=== PATIENT | female | born 1950 | race African-American/Black ===

== ENCOUNTER → 2021-04-02 | Day surgery (SDC) | payer MEDICARE, MEDICAID | LOC: CSHMAMMO 07:15 | PROVIDERS: ATTEND Family Medicine Sports Medicine | PROC: 0HBU3ZX Excision of Left Breast, Percutaneous Approach, Diagnostic (ICD-10-PCS; principal; 2021-04-02) | DX: D24.2 Benign neoplasm of left breast (principal) | CPT/HCPCS: 19081; 76098; 88305 ==

== ENCOUNTER 2021-05-01 17:45 | Inpatient (IN) | payer MEDICARE, MEDICAID ==
[2021-05-01 18:15] LABS: #Eosinphils 0.2 10x3/uL (0.0-0.5); #Monocytes 0.4 10x3/uL (0.0-1.1); #Neutrophils 2.2 10x3/uL (1.5-8.4); %Basophils 0.4 % (0.0-2.0); %Eosinophils 3.7 % (0.0-6.0); %Lymphocytes 47.1 % (18.0-47.0); %Monocytes 7.1 % (0.0-10.0); %Neutrophils 41.5 % (40.0-75.0); Hemoglobin 9.8 g/dL (12.0-15.5); Mean Corpuscular HGB CONC 31.5 g/dL (32.0-36.0); Mean Corpuscular Hemoglobin 27.3 pg (27.0-33.0); Mean Corpuscular Volume 86.6 fl (81.6-98.3); Platelet Count 220 10x3/uL (150-450); RBC Distribution Width 15.1 % (11.5-14.5); Red Blood Cell (RBC) Count 3.59 10x6/uL (3.90-5.03); White Blood Cell (WBC) Count 5.4 10x3/uL (3.5-10.5)
[2021-05-01 18:31] LABS: ALT (SGPT) 27 U/L (8-55); AST (SGOT) 24 U/L (5-34); Albumin 3.9 g/dL (3.4-4.8); Alkaline Phosphatase 79 U/L (40-110); Anion Gap 13 mmol/L (10-20); BUN (Urea Nitrogen) 60 mg/dL (9.8-20.1); Bilirubin, Total 0.3 mg/dL (0.2-1.2); Calc. Creatinine Clearance 0 mL/min (70-130); Calcium 11.1 mg/dL (7.8-10.44); Carbon Dioxide 24 mmol/L (23-31); Chloride 105 mmol/L (98-107); Globulin 3.9 g/dL (2.4-3.5); Glucose 126 mg/dL (83-110); Potassium 4.4 mmol/L (3.5-5.1); Protein, Total 7.8 g/dL (5.8-8.1); Sodium 138 mmol/L (136-145)
[2021-05-01] MEDS ORDERED: Enoxaparin Sodium 100 MG/ML SYRINGE ONE (19:45)
[2021-05-01] MEDS ORDERED: Dextrose 50% Abboject 50 ML SYRINGE SLOW IVP PRN (19:59)
[2021-05-01] MEDS ORDERED: Acetaminophen 325 MG TAB PO PRN (19:59)
[2021-05-01] MEDS ORDERED: Acetaminophen 650 MG Suppository PR PRN (19:59)
[2021-05-01] MEDS ORDERED: Ondansetron ODT 4 MG TAB PO PRN (19:59)
[2021-05-01] MEDS ORDERED: Ondansetron PF 4 MG/2 ML Vial IVP PRN (19:59)
[2021-05-01] MEDS ORDERED: HumaLOG 300 UNITS/3 ML VIAL SC PRN ×2 (19:59)
[2021-05-01] MEDS ORDERED: Dextrose 5% in Water 1,000 ML IV PRN (19:59)
[2021-05-01 20:33] VITALS: BMI 34.8
[2021-05-01] MEDS ORDERED: Sodium Chloride 0.9% 1,000 ML IV SCH ×2 (21:15→21:30)
[2021-05-01 21:36] LABS: Troponin I Less than 0.010 ng/mL (< 0.028)
[2021-05-02 00:09] LABS: Troponin I Less than 0.010 ng/mL (< 0.028)
[2021-05-02 04:54] LABS: #Eosinphils 0.2 10x3/uL (0.0-0.5); #Monocytes 0.4 10x3/uL (0.0-1.1); #Neutrophils 1.7 10x3/uL (1.5-8.4); %Basophils 0.4 % (0.0-2.0); %Lymphocytes 47.5 % (18.0-47.0); %Monocytes 8.5 % (0.0-10.0); %Neutrophils 39.2 % (40.0-75.0); Hemoglobin 8.6 g/dL (12.0-15.5); Mean Corpuscular HGB CONC 31.5 g/dL (32.0-36.0); Mean Corpuscular Hemoglobin 27.2 pg (27.0-33.0); Mean Corpuscular Volume 86.4 fl (81.6-98.3); Mean Platelet Volume 10.1 fl (7.4-10.4); Platelet Count 186 10x3/uL (150-450); RBC Distribution Width 15.1 % (11.5-14.5); Red Blood Cell (RBC) Count 3.16 10x6/uL (3.90-5.03); White Blood Cell (WBC) Count 4.5 10x3/uL (3.5-10.5)
[2021-05-02 05:06] LABS: Anion Gap 11 mmol/L (10-20); BUN (Urea Nitrogen) 53 mg/dL (9.8-20.1); Calc. Creatinine Clearance 42 mL/min (70-130); Calcium 10.4 mg/dL (7.8-10.44); Carbon Dioxide 22 mmol/L (23-31); Chloride 111 mmol/L (98-107); Glucose 204 mg/dL (83-110); Potassium 4.6 mmol/L (3.5-5.1); Sodium 139 mmol/L (136-145)
[2021-05-02] MEDS ORDERED: Gabapentin 300 MG CAP PO SCH (09:00)
[2021-05-02] MEDS ORDERED: [UNRECOGNIZED DRUG - OTHER] EA EYE SCH (09:00)
[2021-05-02] MEDS ORDERED: Ferrous Sulfate 325 MG TAB PO SCH (09:00)
[2021-05-02] MEDS ORDERED: Cholecalciferol 1,000 UNITS (25 MCG) TAB PO SCH (09:00)
[2021-05-02] MEDS ORDERED: PROPYLENE GLYCOL EA EYE SCH (09:00)
[2021-05-02] MEDS ORDERED: Amlodipine 5 MG TAB PO SCH (09:00)
[2021-05-02] MEDS ORDERED: Aspirin 81 mg Enteric Coated Tablet PO SCH (09:00)
[2021-05-02] MEDS ORDERED: Rosuvastatin 20 MG TAB PO SCH ×2 (09:00→21:00)
[2021-05-02] MEDS ORDERED: PEG EA EYE SCH (09:00)
[2021-05-02] MEDS ORDERED: Empagliflozin 10 MG TAB PO SCH (09:00)
[2021-05-02] MEDS ORDERED: Allopurinol 300 MG TAB PO SCH (09:00)
[2021-05-02] MEDS ORDERED: Albuterol Sulfate 2.5 mg/3 ml Neb NEB PRN (10:30)
[2021-05-02] MEDS ORDERED: Sodium Chloride 0.9% 1,000 ML IV SCH (16:00)
[2021-05-02 16:10] VITALS: BP 120/58; TEMP 98.2
[2021-05-03] MEDS ORDERED: Ketotifen Fumarate 0.025% Ophth Soln 5 ml Bottle EA EYE SCH (21:00)
== END 2021-05-02 17:50 | disposition home or self-care (01) | DRG 311 ==
LOC: CSHERS 17:45 → CSHTELE 17:46
PROVIDERS: ADMIT Internal Medicine; ATTEND Internal Medicine
DX: I20.0 Unstable angina (principal); N17.9 Acute kidney failure, unspecified; E78.5 Hyperlipidemia, unspecified; E78.00 Pure hypercholesterolemia, unspecified; M06.9 Rheumatoid arthritis, unspecified; J45.909 Unspecified asthma, uncomplicated; Z96.652 Presence of left artificial knee joint; M19.90 Unspecified osteoarthritis, unspecified site; N18.9 Chronic kidney disease, unspecified; I12.9 Hypertensive chronic kidney disease with stage 1 through stage 4 chronic kidney disease, or unspecified chronic kidney disease; Z66 Do not resuscitate; M10.9 Gout, unspecified; Z90.710 Acquired absence of both cervix and uterus; Z88.8 Allergy status to other drugs, medicaments and biological substances; Z79.51 Long term (current) use of inhaled steroids; Z79.899 Other long term (current) drug therapy; Z79.82 Long term (current) use of aspirin; E11.22 Type 2 diabetes mellitus with diabetic chronic kidney disease
CPT/HCPCS: 36415; 36416; 71045; 78451; 80048; 80053; 84484; 85025; 93005; 94760; A9540; J1650; J7050

== ENCOUNTER 2022-06-02 13:30 | Outpatient (CLI) | payer OTHER | END 2022-06-02 13:31 | disposition home or self-care (01) | LOC: CSHMAMMO 13:30 | PROVIDERS: ATTEND Family Medicine Sports Medicine | DX: Z12.31 Encounter for screening mammogram for malignant neoplasm of breast (principal); M85.89 Other specified disorders of bone density and structure, multiple sites; Z91.89 Other specified personal risk factors, not elsewhere classified | CPT/HCPCS: 77063; 77067; 77080 ==